=== PATIENT | male | born 1955 | race Caucasian/White ===

== ENCOUNTER 2020-05-10 08:03 | Day surgery (SDC) | payer OTHER ==
[~2020-05-10] VITALS: Ht 188 cm; Wt 119.3 kg
[~2020-05-10 08:03] MED LIST: IRBESARTAN-HCT1 EACH PO; PRAVACHOL20 MG PO
[2020-05-10] MEDS ORDERED: PRAVASTATIN SOD80 MG PO (08:41)
--- NOTE | 2020-05-10 10:14 | NUR ---
05/10/20 1014 Ricarda Lyle 1009 PATIENT ARRIVES TO PACU SLEEPING. OPENS EYES WITH VERBAL STIMULI. RESP EVEN AND UNLABORED, NC AT 2 LITERS. PATIENT DENIES PAIN OR NAUSEA.
--- NOTE | 2020-05-10 17:05 | OR ---
[facility] [address], [place] [address] Signed DATE OF OPERATION: 05/10/2020 SURGEON: Dia Garcia MD PREOPERATIVE DIAGNOSIS: Screening. POSTOPERATIVE DIAGNOSES: 1. Minimal sigmoid diverticulosis. 2. Moderate internal hemorrhoids. 3. Multiple 3-4 mm rectal polyps. PROCEDURE: Colonoscopy with hot biopsy. ESTIMATED BLOOD LOSS: None. INDICATIONS: Tobi is a 64-year-old gentleman, asked to see me for his initial screening colonoscopy. He said he has no lower GI complaints. There is no family history of colon cancer or polyps. I gave him a pamphlet on colonoscopy. We looked at those together along with the risks including, but not limited to gas bloating, crampy abdominal pain, bleeding, perforation requiring surgery, and missed diagnosis. He also understands the need for IV conscious sedation. He had expressed understanding and wished to proceed. PROCEDURE NOTE: Tobi was taken into our endoscopy suite and placed in the left lateral decubitus position. He was given IV sedation with 9 mg of Versed and 125 mcg of fentanyl. A digital rectal exam was performed and he does have a moderately enlarged indurated prostate. No dominant nodules. The adult colonoscope was introduced and advanced all around into the cecum under direct visualization of camera without difficulty, and he did take a little extra sedation while advancing the scope. His prep was quite good. The scope was slowly withdrawn. We could easily see the appendiceal orifice and the ileocecal valve. We did take pictures throughout for photodocumentation. In the sigmoid colon, he had just a few small diverticula. They were small in size, minimal number and scattered about. In the rectum, he had the classic tiny 3-4 mm in size hyperplastic-appearing polyps. We removed these with a hot biopsy forceps. Upon retroflexion of scope, we can see he does have moderate internal hemorrhoid columns. At Electronically Signed By: DIA GARCIA MD 05/10/20 1705 PATIENT NAME: TOBI HOLMAN OPERATIVE REPORT DATE OF : 59 REPORT #: [id number] PHYSICIAN: DIA GARCIA MD PCP: LUCAS NOLAN MD REPORT IS CONFIDENTIAL AND NOT TO BE RELEASED WITHOUT AUTHORIZATION [facility] [address], [place] [address] Signed the top of the hemorrhoid column was a tiny hyperplastic appearing polyp. It was also removed with hot biopsy forceps. After this, the gas was suctioned out, the colonoscope was removed. Tobi tolerated the procedure quite well. RECOMMENDATIONS: I will see Tobi back in my office in 7 to 14 days to review his results. Dia Garcia MD ALB/ANTONYL /[id number] cc: MD Dia Brantley MD Copies: LUCAS NOLAN DMD, ANDREW L MD ~ Electronically Signed By: DIA GARCIA MD 05/10/20 1705 PATIENT NAME: TOBI HOLMAN OPERATIVE REPORT DATE OF : 59 REPORT #: [id number] PHYSICIAN: DIA GARCIA MD PCP: LUCAS NOLAN MD REPORT IS CONFIDENTIAL AND NOT TO BE RELEASED WITHOUT AUTHORIZATION
--- NOTE | 2020-05-11 11:34 | PATH ---
[facility] [address], [place] [address] Signed SPECIMEN(S): A RECTAL POLYP SPECIMEN SOURCE: A. RECTAL POLYP CLINICAL HISTORY: Rectal polyps, internal hemorrhoids. Colonoscopy. MICROSCOPIC DESCRIPTION: Histologic sections of all submitted blocks are examined by light microscopy. These findings, together with the gross examination, support the pathologic diagnosis. FINAL PATHOLOGIC DIAGNOSIS: Rectum, polyp, polypectomy: - Fragments of hyperplastic polyp. - Negative for dysplasia or malignancy. NAL:cml:C2NR GROSS DESCRIPTION: The specimen, labeled "KH, 1," and designated on the requisition "rectal polyp," is received in formalin and consists of multiple iraheta soft tissue fragments that measure 1.4 x 0.7 x 0.3 cm in aggregate. The specimen is entirely submitted in cassette (A1). AT (under the direct supervision of a pathologist) The Gross Description was prepared using a voice recognition system. The report was reviewed for accuracy; however, sound-alike word errors, addition and/or deletions may occur. If there is any question about this report, please contact Client Services. PERFORMING LABORATORY: The technical component was performed by [email or web address], [address] [place] [id number] (Strip Cutting Machine Operator: Daly Mcnamara MD; CLIA# [id number]). [email or web address] [address] [address] (CLIA# [id number]). Diagnostician: Liane Cummins MD Pathologist Electronically Signed 05/11/2020 PATIENT NAME: JONATHAN HOLMAN PATHOLOGY DATE OF : 59 REPORT #: [id number] PHYSICIAN: DANIEL PATHOLOGY PCP: LUCAS NOLAN MD REPORT IS CONFIDENTIAL AND NOT TO BE RELEASED WITHOUT AUTHORIZATION [address] [address] Signed Copies: ~ PATIENT NAME: JONATHAN HOLMAN PATHOLOGY DATE OF : 59 REPORT #: [id number] PHYSICIAN: DANIEL PATHOLOGY PCP: LUCAS NOLAN MD REPORT IS CONFIDENTIAL AND NOT TO BE RELEASED WITHOUT AUTHORIZATION
== END 2020-05-10 11:20 | disposition home or self-care (01) ==
LOC: OPS 08:03 → DS 08:03 → OPS 09:45
PROVIDERS: ATTEND Colon & Rectal Surgery
PROC: 0DBP8ZZ Excision of Rectum, Via Natural or Artificial Opening Endoscopic (ICD-10-PCS; principal; 2020-05-10 09:45)
DX: Z12.11 Encounter for screening for malignant neoplasm of colon (principal); K62.1 Rectal polyp; K64.8 Other hemorrhoids; K57.30 Diverticulosis of large intestine without perforation or abscess without bleeding; I10 Essential (primary) hypertension; Z79.899 Other long term (current) drug therapy; Z68.33 Body mass index [BMI] 33.0-33.9, adult
CPT/HCPCS: 99153; G0500; J2250; J3010; J7121